=== PATIENT | female | born 1985 | race African-American/Black ===

== ENCOUNTER 2017-01-06 16:53 | Emergency (ER) | payer SELFPAY ==
[~2017-01-06] VITALS: Ht 165.1 cm; Wt 59.0 kg
--- NOTE | 2017-01-06 16:51 | Emergency Room Report ---
History of Present Illness General Source: Patient, EMS Present Illness HPI Patient 31-year-old female brought in by EMS after increased altered level consciousness. The patient was noted to near syncopal episode while at home. The patient had the been noted to have oriented x3 by EMS. She is noted to have adequate blood sugar.Patient was not noted to have past medical history. Allergies: Coded Allergies: No Known Allergies (Unverified , 02/17/16) Patient History Past Medical History: see triage record Reviewed Nursing Documentation: PMH: Agreed, PSxH: Agreed Review of Systems All Other Systems: limited - by mental status Physical Exam Sp02 EP Interpretation: reviewed, normal General Appearance: normal inspection, well appearing, no apparent distress, alert, GCS 15 Head: atraumatic Eyes: bilateral eye PERRL ENT: normal ENT inspection, hearing grossly normal, normal voice Neck: normal inspection, full range of motion, supple, no bony tend Respiratory: normal inspection, lungs clear, normal breath sounds, no respiratory distress, no retraction, no wheezing Cardiovascular #1: regular rate, rhythm, no edema Gastrointestinal: normal inspection, normal bowel sounds, non tender, soft, no guarding, no hernia Genitourinary: no CVA tenderness Musculoskeletal: normal inspection, back normal, normal range of motion Neurologic: normal inspection, alert, oriented x3, responsive, speech normal, oriented Psychiatric: normal inspection, judgement/insight normal, mood/affect normal Skin: normal inspection, normal color, no rash Medical Decision Making Diagnostic Impression: Primary Impression: Altered level of consciousness ER Course Patient presented for altered mental status. Differential diagnosis included but was not limited to ischemic stroke, subarachnoid hemorrhage, hypoglycemia, spinal cord injury, neurodegenerative disorder, urinary tract infection, hypoxemia.Because of complexity of patient's case laboratory testing and imaging studies were ordered. Patient was noted to be awake and alert. Patient stated that she did not want further laboratory testing or CT imaging. Patient was advised risk benefits alternatives of leaving AGAINST MEDICAL ADVICE. The patient appears to have a good plan for self care. 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 The patient was advised that I do not recommend or think she is safe to drive a motor vehicle. The patient was advised risk benefits alternatives of leaving AGAINST MEDICAL ADVICE and he indicated understanding and all questions are answered patient still continued want to leave and signed AGAINST MEDICAL ADVICE. Despite risks including but not limited to disability and worsening of current lifestyle. Status: improved Disposition: AGAINST MEDICAL ADVICE Condition: Unknown AnibalLuis Miguel Jan 06, 2017 16:51
[~2017-01-06 16:53] MED LIST: UNOBMED
[2017-01-06 16:58] VITALS: BP 116/78
[2017-01-06 17:17] VITALS: BP 116/78
== END 2017-01-06 17:19 | disposition left against medical advice (07) ==
LOC: EDBD 16:53 → EMR 17:17
DX: R41.82 Altered mental status, unspecified (principal)
CPT/HCPCS: 99283